=== PATIENT | female | born 1970 | race Caucasian/White ===

== ENCOUNTER 2020-11-20 17:46 | Emergency (ER) | payer OTHER ==
[~2020-11-20] VITALS: Ht 157.5 cm; Wt 65.9 kg
[2020-11-20 17:55] VITALS: TEMP 98.2
[2020-11-20 18:25] LABS: BASO # 0.1 (0.0-0.2); BASO % 1.2 % (0.0-2.0); EOS # 0.1 (0.0-0.7); EOS % 2.4 % (0-4.0); GRAN # 3.1 (1.4-6.5); GRAN % 60.8 % (42.2-75.2); HEMATOCRIT 40.5 % (37.0-47.0); HEMOGLOBIN 13.3 g/dl (12.5-16.0); LYMPH # 1.3 (1.2-3.4); LYMPH % 26.1 % (20.0-51.0); MEAN CELL VOLUME 95 fl (80.0-100.0); MEAN CORPUSCULAR HEMOGLOBIN 31 pg (27.0-31.0); MEAN CORPUSCULAR HGB CONC 33 g/dl (33.0-37.0); MONO # 0.4 (0.1-0.6); MONO % 8.7 % (1.7-9.3); PLATELET COUNT 178 K/mm3 (130-400); RED BLOOD COUNT 4.28 M/mm3 (4.10-5.30); REDCELL DISTRIBUTION WIDTH-CV 13.1 % (11.5-14.5)
[2020-11-20 18:47] LABS: ALCOHOL(ethanol),MEDICAL < 10 mg/dL; BLOOD UREA NITROGEN 11 mg/dL (7-17); CHLORIDE 99 mmol/L (98-107); CREATININE, serum 0.6 (0.52-1.25); GLUCOSE 205 mg/dL (74-106); POTASSIUM 4.1 mmol/L (3.4-5.0); SODIUM 136 mmol/L (137-145)
[2020-11-20 18:48] LABS: ALANINE AMINOTRANSFERASE 124 U/L (4-34); ALBUMIN 4.4 gm/dL (3.5-5.0); ALKALINE PHOSPHATASE 109 U/L (50-136); AST,SGOT 335 U/L (15-37); CALCIUM 9.7 mg/dL (8.4-10.2); CARBON DIOXIDE 26 mmol/L (22-30); MAGNESIUM 1.7 mg/dL (1.6-2.3); PROLACTIN 41.1 ng/mL (3.0-18.6); TOTAL PROTEIN 8.4 gm/dL (6.4-8.2)
[2020-11-20 18:50] LABS: ANION GAP 11 mmol/L (7-16)
[2020-11-20 19:23] LABS: STREP SCREEN NEGATIVE
[2020-11-20] MEDS ORDERED: LIBRIUM 10M10 MG/CAP PO (21:48)
[2020-11-20 22:35] VITALS: BP 148/94; PULSE 92
== END 2020-11-20 22:40 | disposition home or self-care (01) ==
LOC: COL.ER 17:46
PROVIDERS: Emergency Medicine
DX: R56.9 Unspecified convulsions (principal); S00.83XA Contusion of other part of head, initial encounter; Z90.710 Acquired absence of both cervix and uterus; W01.198A Fall on same level from slipping, tripping and stumbling with subsequent striking against other object, initial encounter; Y92.513 Shop (commercial) as the place of occurrence of the external cause
CPT/HCPCS: J2060; J2405; J7030